=== PATIENT | male | born 1945 ===

== ENCOUNTER 2020-09-28 18:54 | Emergency (ER) | payer OTHER ==
[2020-09-28] MEDS ORDERED: solu-MEDROL 125 MG ONE (18:59)
[2020-09-28 19:08] LABS: A-aADO2 550; ABG HEMOGLOBIN 12.2; ABG POTASSIUM 3.9 (3.5-5.1); ABG SITE RIGHT BRACHIAL; ARTERIAL BLD GAS O2 SATURATION 99.5 % (95-100); ARTERIAL BLOOD GAS FIO2 100 %; ARTERIAL BLOOD GAS PCO2 37 mmHg (35-45); ARTERIAL BLOOD GAS PO2 117 mmHg (75-100); ARTERIAL BLOOD GAS pH 7.36 (7.35-7.45); CARBOXYHEMOGLOBIN 1.5 % THgb (0.0-6.9); HCO3- 20.9 (22-28); HGB O2 SAT 96.9 g/dF (94-100); Lactic Acid 3.5 (0.4-2.0); Methhemoglobin 1.1 % (1.4-1.5)
--- NOTE | 2020-09-28 19:12 | ERPHSYRPT ---
- History of Present Illness Time Seen by Provider: 09/28/20 19:00 Source: patient, EMS, old records Exam Limitations: clinical condition Physician History: This is a 75-year-old male [place] who has a questionable history of asthma and COPD. Has history of hypertension. Patient states its been many years since he stopped smoking. Patient states that he has had worsening shortness of breath over the last few days. He has a history of congestive heart failure. Patient denies chest pain. Patient presents with history of hypoxia today with a room air oxygen level of 83 to 89%. Patient was given a DuoNeb nebulizer treatment and 125 mg of intravenous Solu-Medrol by EMS in route to our facility. Timing/Duration: day(s) (3) Activities at Onset: none Severity of Dyspnea-Max: moderate Severity of Dyspnea-Current: moderate Possible Cause: occasional episodes Modifying Factors: Improves With: exertion (Worsens) Associated Symptoms: anxiety, heart racing, No chest pain/discomfort Allergies/Adverse Reactions: No Known Drug Allergies Allergy (Unverified 09/28/20 19:17) Home Medications: Atorvastatin Calcium [Lipitor] 1 ea DAILY 09/28/20 [History] Benztropine Mesylate 1 ea BID 09/28/20 [History] Benztropine Mesylate 1 ea BID 09/28/20 [History] Brimonidine Tartrate/Timolol [Combigan 0.2%-0.5% Eye Drops] 1 ea BID 09/28/20 [History] Latanoprost [Xalatan] 1 ea DAILY 09/28/20 [History] Levalbuterol HCl [Xopenex] 45 mcg IH Q6H PRN 09/28/20 [History] Pantoprazole Sodium [Protonix] 1 ea DAILY 09/28/20 [History] Vit B12/Folic Acid/B6/Aa No.15 [Glycotrol Capsule] 1 ea DAILY 09/28/20 [History] lisinopriL [Zestril] 1 ea DAILY 09/28/20 [History] Travel Risk - International Travel Have you traveled outside of the country in past 3 weeks: No - Coronavirus Screening Are you exhibiting any of the following symptoms?: Yes Symptoms: Fever, Shortness of Breath Close contact with a COVID-19 positive Pt in past 14-21 Days: No - Review of Systems Constitutional: Fever Eyes: No Symptoms Ears, Nose, & Throat: No Symptoms Respiratory: Dyspnea, Wheezing Cardiac: No Symptoms Abdominal/Gastrointestinal: No Symptoms Genitourinary Symptoms: No Symptoms Musculoskeletal: No Symptoms Skin: No Symptoms Neurological: No Symptoms Psychological: Anxiety Endocrine: No Symptoms Hematologic/Lymphatic: No Symptoms Immunological/Allergic: No Symptoms All Other Systems: Reviewed and Negative - Past Medical History Pertinent Past Medical History: Yes Cardiac History: Congestive Heart Failure, Hypertension Respiratory History: CHF, COPD Endocrine Medical History: No Pertinent History Musculoskeletal History: No Pertinent History GI Medical History: No Pertinent History History: No Pertinent History Psycho-Social History: No Pertinent History Male Reproductive Disorders: No Pertinent History - Past Surgical History Past Surgical History: Yes - Nursing Vital Signs Nursing Vital Signs: Initial Vital Signs Temperature 100.3 F 09/28/20 18:57 Pulse Rate 68 09/28/20 18:57 Respiratory Rate 36 H 09/28/20 18:57 Blood Pressure 111/73 09/28/20 18:57 O2 Sat by Pulse Oximetry 93 L 09/28/20 18:57 Pain Scale Pain Intensity 0 - Physical Exam General Appearance: moderate distress, alert, anxiety, thin Eye Exam: PERRL/EOMI, eyes nml inspection Ears, Nose, Throat Exam: hearing grossly normal Neck Exam: normal inspection, non-tender, supple, full range of motion Respiratory Exam: respiratory distress, airway intact, diminished breath sounds, wheezing Cardiovascular/Chest Exam: tachycardia Abdominal/Gastrointestinal Exam: soft, normal bowel sounds, No tenderness Rectal Exam: not done Extremity Exam: non-tender, normal range of motion, normal inspection Neurologic Exam: alert, oriented x 3, field consultant II-XII nml as tested Skin Exam: dry, pale Lymphatic Exam: No adenopathy SpO2 Interpretation: hypoxic O2 Delivery: Non-rebreather - Course Nursing assessment & vital signs reviewed: Yes EKG Interpreted by Me: RATE ([id number]), Sinus Tach, LAFB, NORMAL QRS, Other (No comparison EKG.) Ordered Tests: Active Orders 24 hr Category Date Time Status Fiberglass Luggage Molder STAT Care 09/28/20 19:16 Active EKG-ER Only STAT Care 09/28/20 19:15 Active IV Insertion STAT Care 09/28/20 19:15 Active Pulse Oximetry (ED) STAT Care 09/28/20 19:15 Active CHEST 1 VIEW (PORTABLE) Stat Exams 09/28/20 19:15 Taken ABG [ARTERIAL BLOOD GASES] Urgent Lab 09/28/20 19:00 Completed BLOOD CULTURE Stat Lab 09/28/20 19:34 Received CBC W DIFF Stat Lab 09/28/20 19:10 Completed CMP Stat Lab 09/28/20 19:10 Completed D-DIMER QUANTITATIVE Stat Lab 09/28/20 19:10 Completed INFLUENZA A+B ELLIS Stat Lab 09/28/20 19:34 Received Lactic Acid Urgent Lab 09/28/20 19:00 Completed [place] Screen Stat Lab 09/28/20 19:35 Received NT PRO BNP Stat Lab 09/28/20 19:10 Completed PROTIME WITH INR Stat Lab 09/28/20 19:10 Completed TROPONIN Q3H Lab 09/28/20 19:10 Completed TROPONIN Q3H Lab 09/28/20 22:15 Ordered TROPONIN Q3H Lab 09/29/20 01:15 Ordered TROPONIN Q3H Lab 09/29/20 04:15 Ordered TROPONIN Q3H Lab 09/29/20 07:15 Ordered Respiratory Therapy Assessment DAILY RT 09/28/20 19:25 Active Medication Summary Generic Name Dose Route Start Last Admin Trade Name Freq PRN Reason Stop Dose Admin Sodium Chloride 1,000 mls @ 100 mls/hr 09/28/20 19:30 09/28/20 19:25 Sodium Chloride 0.9% 1000 Ml IV 10/28/20 19:29 100 mls/hr .Q10H JACOB Administration Ceftriaxone Sodium/Dextrose 1 g in 50 mls @ 100 mls/hr 09/28/20 19:59 Rocephin 1 Gm-D5w 50 Ml Bag IV 09/28/20 20:28 STAT STA Discontinued Medications Generic Name Dose Route Start Last Admin Trade Name Freq PRN Reason Stop Dose Admin Albuterol Sulfate Confirm 09/28/20 19:16 Proventil 2.5 Mg/3 Ml Neb Administered 09/28/20 19:17 Dose 2.5 mg IH .STK-MED ONE Albuterol Sulfate 2.5 mg 09/28/20 19:23 09/28/20 19:24 Proventil 2.5 Mg/3 Ml Neb IH 09/28/20 19:24 2.5 mg STAT ONE Administration Enoxaparin Sodium 65 mg 09/28/20 19:59 Enoxaparin Sodium SQ 09/28/20 20:00 STAT ONE Furosemide 40 mg 09/28/20 19:30 09/28/20 19:46 Lasix 40 Mg/4 Ml IV 09/28/20 19:31 40 mg STAT ONE Administration Furosemide Confirm 09/28/20 19:45 Lasix 40 Mg/4 Ml Administered 09/28/20 19:46 Dose 40 mg .ROUTE .STK-MED ONE Lorazepam 1 mg 09/28/20 19:21 09/28/20 19:26 Ativan 2 Mg/1 Ml Vial IV 09/28/20 19:22 1 mg STAT ONE Administration Lorazepam Confirm 09/28/20 19:24 Ativan 2 Mg/1 Ml Vial Administered 09/28/20 19:25 Dose 2 mg .ROUTE .STK-MED ONE Methylprednisolone Sodium Succinate Confirm 09/28/20 18:59 Solu-Medrol 125 Mg Administered 09/28/20 19:00 Dose 125 mg .ROUTE .STK-MED ONE Methylprednisolone Sodium Succinate 125 mg 09/28/20 19:13 09/28/20 19:14 Solu-Medrol 125 Mg IV 09/28/20 19:14 125 mg STAT ONE Administration Lab/Rad Data: Laboratory Result Diagrams 09/28/20 19:10 09/28/20 19:10 Laboratory Results 09/28/20 09/28/20 09/28/20 Range/Units 19:10 19:10 19:10 WBC 12.9 H (4.0-10.5) K/mm3 RBC 3.66 L (4.1-5.6) M/mm3 Hgb 11.7 L (12.5-18.0) gm/dl Hct 38.4 L (42-50) % MCV 104.9 H (78-100) fl MCH 32.0 (26-32) pg MCHC 30.5 L (32-36) g/dl RDW 14.1 H (11.5-14.0) % Plt Count 300 (150-450) K/mm3 MPV 10.9 (7.5-11.0) fl Gran % 70.9 H (36.0-66.0) % Eos # (Auto) 0.12 (0-0.5) Absolute Lymphs (auto) 2.50 (1.0-4.6) Absolute Monos (auto) 1.10 (0.0-1.3) Lymphocytes % 19.5 L (24.0-44.0) % Monocytes % 8.6 (0.0-12.0) % Eosinophils % 0.9 (0.00-5.0) % Basophils % 0.1 (0.0-0.4) % Absolute Granulocytes 9.12 H (1.4-6.9) Basophils # 0.01 (0-0.4) PT 14.2 H (8.83-12.87) SECONDS INR 1.25 (0.8-3.0) D-Dimer 1263 H* (215-500) ng/mL Puncture Site pCO2 (35-45) mmHg pO2 (75-100) mmHg Base Excess (-2.0-2.0) O2 Saturation (94-100) g/dF ABG pH (7.35-7.45) ABG HCO3 (22-28) ABG O2 Sat (Measured) (95-100) % Francisco Test A-a Gradient a/A Ratio Hemoglobin Carboxyhemoglobin (0.0-6.9) % THgb Methemoglobin (1.4-1.5) % Potassium 4.1 (3.5-5.1) Temperature C POC O2 Flow Rate % Sodium 139 (137-145) mmol/L Chloride 107 (98-107) mmol/L Carbon Dioxide 23 (22-30) mmol/L Anion Gap 13.7 (5-15) MEQ/L BUN 22 H (9-20) mg/dL Creatinine 1.20 (0.66-1.25) mg/dL Estimated GFR > 60.0 ML/MIN Glucose 230 H (74-106) mg/dL Lactic Acid (0.4-2.0) Calcium 9.1 (8.4-10.2) mg/dL Total Bilirubin 0.60 (0.2-1.3) mg/dL AST 43 (17-59) U/L ALT 18 (0-50) U/L Alkaline Phosphatase 51 (38-126) U/L Troponin I (0.000-0.034) ng/mL NT-Pro-B Natriuret Pep 31501 H (0-900) pg/mL Serum Total Protein 6.7 (6.3-8.2) g/dL Albumin 3.3 L (3.5-5.0) g/dL 09/28/20 09/28/20 Range/Units 19:10 19:00 WBC (4.0-10.5) K/mm3 RBC (4.1-5.6) M/mm3 Hgb (12.5-18.0) gm/dl Hct (42-50) % MCV (78-100) fl MCH (26-32) pg MCHC (32-36) g/dl RDW (11.5-14.0) % Plt Count (150-450) K/mm3 MPV (7.5-11.0) fl Gran % (36.0-66.0) % Eos # (Auto) (0-0.5) Absolute Lymphs (auto) (1.0-4.6) Absolute Monos (auto) (0.0-1.3) Lymphocytes % (24.0-44.0) % Monocytes % (0.0-12.0) % Eosinophils % (0.00-5.0) % Basophils % (0.0-0.4) % Absolute Granulocytes (1.4-6.9) Basophils # (0-0.4) PT (8.83-12.87) SECONDS INR (0.8-3.0) D-Dimer (215-500) ng/mL Puncture Site RIGHT BRACHIAL pCO2 37 (35-45) mmHg pO2 117 H (75-100) mmHg Base Excess -4.0 L (-2.0-2.0) O2 Saturation 96.9 (94-100) g/dF ABG pH 7.36 (7.35-7.45) ABG HCO3 20.9 L (22-28) ABG O2 Sat (Measured) 99.5 (95-100) % Francisco Test NOT APPLICABLE A-a Gradient 550 a/A Ratio 0.18 Hemoglobin 12.2 Carboxyhemoglobin 1.5 (0.0-6.9) % THgb Methemoglobin 1.1 L (1.4-1.5) % Potassium 3.9 (3.5-5.1) Temperature 37.0 C POC O2 Flow Rate 100 % Sodium (137-145) mmol/L Chloride (98-107) mmol/L Carbon Dioxide (22-30) mmol/L Anion Gap (5-15) MEQ/L BUN (9-20) mg/dL Creatinine (0.66-1.25) mg/dL Estimated GFR ML/MIN Glucose (74-106) mg/dL Lactic Acid 3.5 H (0.4-2.0) Calcium (8.4-10.2) mg/dL Total Bilirubin (0.2-1.3) mg/dL AST (17-59) U/L ALT (0-50) U/L Alkaline Phosphatase (38-126) U/L Troponin I 2.490 H* (0.000-0.034) ng/mL NT-Pro-B Natriuret Pep (0-900) pg/mL Serum Total Protein (6.3-8.2) g/dL Albumin (3.5-5.0) g/dL - Progress Progress: improved, re-examined Air Movement: fair Progress Note: 09/28/20 19:29 Chest x-ray shows bibasilar infiltrates as well as bilateral pleural effusions. 09/28/20 20:04 Medical decision making: This patient has multiple critical issues. Patient presented with hypoxia despite oxygen supplementation. His arterial blood gas does not appear too bad at this time. The patient has a fever of 101F. We performed blood cultures. We provided patient with Rocephin intravenously. The patient has a non-STEMI as well as congestive heart failure with a BNP of 25,500. I spoke with Dr. Caruso who is the emergency room physician at [facility]. I reviewed the patient history, condition, work-up results as well as therapeutic interventions. We did discuss the use of Lovenox instead of heparin. I gave the most up-to-date vital signs to him. We also discussed performing a CTA of the chest here prior to transferring the patient. The patient's D-dimer may be elevated due to a Covid 19 infection. His chest x-ray has typical findings. However Dr. Caruso stated to send the patient to the emergency department at [facility] and there, they will perform the CTA of the chest and a rapid Covid test as well. Blood Culture(s) Obtained: Yes Counseled pt/family regarding: lab results, diagnosis, rad results - Departure Departure Disposition: Transfer Clinical Impression: Hypoxia, Shortness of breath, Non-STEMI (non-ST elevated myocardial infarction), Congestive heart failure, Elevated d-dimer, Fever Condition: Serious Critical Care Time: Yes Critical Care Time(excluding separately billable procedures): Critical 30-74 mins Instructions: Heart Failure
[2020-09-28] MEDS ORDERED: solu-MEDROL 125 MG IV ONE (19:13)
[2020-09-28] MEDS ORDERED: PROVENTIL 2.5 MG/3 ML NEB IH ONE ×2 (19:16→19:23)
[2020-09-28] MEDS ORDERED: Ativan 2 MG/1 ML VIAL IV ONE (19:21)
[2020-09-28 19:24] LABS: Absolute Neutrophil Ct (ANC) 9.12 (1.4-6.9); BASOPHIL % 0.1 % (0.0-0.4); Basophil (Absolute #) 0.01 (0-0.4); Eosinophil % 0.9 % (0.00-5.0); Eosinophil (Absolute #) 0.12 (0-0.5); Hematocrit 38.4 % (42-50); Hemoglobin 11.7 gm/dl (12.5-18.0); INR 1.25 (0.8-3.0); Lymphocytes % 19.5 % (24.0-44.0); Mean Cell Volume 104.9 fl (78-100); Mean Corpuscular Hgb Concent. 30.5 g/dl (32-36); Mean Platelet Volume 10.9 fl (7.5-11.0); Monocytes % 8.6 % (0.0-12.0); Neutrophil % 70.9 % (36.0-66.0); PROTIME 14.2 SECONDS (8.83-12.87); Platelet Count 300 K/mm3 (150-450); Red Blood Count 3.66 M/mm3 (4.1-5.6); Red Cell Distribution Width 14.1 % (11.5-14.0); White Blood Count 12.9 K/mm3 (4.0-10.5)
[2020-09-28] MEDS ORDERED: Sodium Chloride 0.9% 1000 ML 1,000 ML ONE (19:24)
[2020-09-28] MEDS ORDERED: Ativan 2 MG/1 ML VIAL ONE (19:24)
[2020-09-28] MEDS ORDERED: Sodium Chloride 0.9% 1000 ML 1,000 ML IV SCH (19:30)
[2020-09-28] MEDS ORDERED: Lasix 40 MG/4 ML IV ONE (19:30)
[2020-09-28 19:42] LABS: ALBUMIN 3.3 g/dL (3.5-5.0); ALKALINE PHOSPHATASE 51 U/L (38-126); ANION GAP 13.7 MEQ/L (5-15); BLOOD UREA NITROGEN 22 mg/dL (9-20); CHLORIDE 107 mmol/L (98-107); Calcium 9.1 mg/dL (8.4-10.2); Carbon Dioxide 23 mmol/L (22-30); EST GLOMERULAR FILTRATION RATE > 60.0 ML/MIN; Glucose 230 mg/dL (74-106); NT PRO BNP 25500 pg/mL (0-900); Potassium 4.1 mmol/L (3.5-5.1); SGOT/AST 43 U/L (17-59); SGPT/ALT 18 U/L (0-50); SODIUM 139 mmol/L (137-145); Total Protein 6.7 g/dL (6.3-8.2)
[2020-09-28] MEDS ORDERED: Lasix 40 MG/4 ML ONE (19:45)
[2020-09-28] MEDS ORDERED: ENOXAPARIN SODIUM SQ ONE ×2 (19:59→20:03)
[2020-09-28] MEDS ORDERED: ROCEPHIN 1 Gm-D5w 50 ml Bag** 1 G/50 ML IVPB IV STA (19:59)
[2020-09-28 20:03] LABS: INFLUENZA A NEGATIVE (NEGATIVE); INFLUENZA B NEGATIVE (NEGATIVE)
[2020-09-28] MEDS ORDERED: ROCEPHIN 1 Gm-D5w 50 ml Bag** 1 G/50 ML IVPB IV ONE (20:03)
--- NOTE | 2020-09-28 20:07 | XRAY ---
Indication: Short of breath. Comparison: None Portable chest demonstrates cardiomegaly, central vascular congestion, pulmonary edema, and moderate bibasilar pleural effusions favoring cardiac decompensation/CHF. Superimposed pneumonia not completely excluded. Bony thoracic intact with osteopenia, degenerative changes, and old left clavicle fracture.
[2020-09-28] MEDS ORDERED: TYLENOL EXTRA STRENGTH 500 MG PO STA (20:09)
[2020-09-28] MEDS ORDERED: TYLENOL EXTRA STRENGTH 500 MG ONE (20:09)
[2020-09-28] MEDS ORDERED: FEVERALL 650 MG PR ONE (20:15)
[2020-09-28 20:16] VITALS: BP 90/61; PULSE 120; O2SAT 94
[2020-09-28] MEDS ORDERED: FEVERALL 650 MG ONE (20:16)
== END 2020-09-28 20:23 | disposition short-term general hospital (02) ==
LOC: ED 18:54 → EEVIPCON 18:54 → ED 20:23
DX: R09.02 Hypoxemia (principal); R06.02 Shortness of breath; I21.4 Non-ST elevation (NSTEMI) myocardial infarction; I50.9 Heart failure, unspecified; R50.9 Fever, unspecified; R79.1 Abnormal coagulation profile; I10 Essential (primary) hypertension; J44.9 Chronic obstructive pulmonary disease, unspecified; Z79.899 Other long term (current) drug therapy
CPT/HCPCS: 36000; 36415; 36600; 71045; 80053; 82375; 82803; 83605; 83880; 84484; 85025; 85379; 85610; 86308; 87040; 87400; 87651; 93005; 93041; 94640; 94760; 96372; 96374; 96375; 99285; 99291; J0696; J1650; J1940; J2060; J2930; J7609; A9270-GY